=== PATIENT | male | born 1985 | race Caucasian/White ===

== ENCOUNTER 2016-08-11 17:38 | Emergency (ER) | payer OTHER | END 2016-08-11 22:20 | disposition home or self-care (01) | LOC: FER 17:38 | DX: S93.402A Sprain of unspecified ligament of left ankle, initial encounter (principal); X50.0XXA Overexertion from strenuous movement or load, initial encounter | CPT/HCPCS: 73610; 99283 ==

== ENCOUNTER 2016-08-12 13:53 | Emergency (ER) | payer OTHER | END 2016-08-12 14:55 | disposition home or self-care (01) | LOC: FER 13:53 | DX: S93.422A Sprain of deltoid ligament of left ankle, initial encounter (principal); K21.9 Gastro-esophageal reflux disease without esophagitis; J30.2 Other seasonal allergic rhinitis; F17.210 Nicotine dependence, cigarettes, uncomplicated; Z79.899 Other long term (current) drug therapy; X50.0XXA Overexertion from strenuous movement or load, initial encounter; Y92.009 Unspecified place in unspecified non-institutional (private) residence as the place of occurrence of the external cause | CPT/HCPCS: 99283 ==